=== PATIENT | female | born 2000 | race Caucasian/White ===

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

== ENCOUNTER 2022-06-05 15:35 | Emergency (ER) | payer SELFPAY ==
--- OUTSIDE RECORDS SUMMARY | 2022-06-05 15:38 | XMS REPORT | Continuity of Care Document ---
:2000 Author Organization [facility] t Address [address] [place] [address] Care Team Providers Name Role Phone Unavailable Unavailable Unavailable Problems This patient has no known problems. Allergies, Adverse Reactions, Alerts This patient has no known allergies or adverse reactions. Medications This patient has no known medications. Procedures This patient has no known procedures. Encounters Start End Encounter Admission Attending Care Care Encounter Source Date/Time Date/Time Type Type Clinicians Facility Department ID 2022-04-06 2022-04-06 Outpatient [facility] [id number] Eusebio 11:28:10 11:28:10 1219 [facility] Results Test Description Test Time Test Comments Results Result Comments Source CT/NG, NAAT, URINE 2021-10-17 15:49:29 Test Item Value Reference Range Interpretation Comme nts GONORRHEA, NAAT NEGATIVE NEGATIVE IMPORTA NT NOTICE: SEE ANNOUNCEMENT AT (test code = [email or web address].Tweet Category/VinsulaKit Note: 08566) Assay methodolo gy is nucleic acid amplification by transcriptio n mediated amplification (TMA) utilizing the A ptima Combo 2 Assay. CHLAMYDIA, NAAT NEGATIVE NEGATIVE IMPORTA NT NOTICE: SEE ANNOUNCEMENT AT (test code = [email or web address].Tweet Category/RocheaihuishoubasUrineKit Note: 59772) Assay methodolo gy is nucleic acid amplification by transcriptio n mediated amplification (TMA) utilizing the A ptima Combo 2 Assay. UNLESS OTHERWISE INDIC ATED, ALL TESTING PERFORMED [facility] [employer] [address] [place] [id number] CAMERA REPAIR TECHNICIAN: LENORE MCCLOUD M.D. CLIA NUMBER [id number] [facility] [place] [place] [id number] CT/NG, NAAT, [id number] 20:29:14 Test Item Value Reference Range Interpretation Comments GONORRHEA, NAAT NEGATIVE NEGATIVE IMPORTA NT NOTICE: SEE (test code = [place] [address]) [email or web address].[email or web address] [email or web address] Note: Assay methodology is nucleic acid amplification b y director of communications m ediated amplification ( TMA) utilizing the A ptima Combo 2 Assay. CHLAMYDIA, NAAT POSITIVE NEGATIVE A IMPORTA NT NOTICE: SEE (test code = [place] [address]) [email or web address].[email or web address] Category/Milton [email or web address] Note: Assay methodology is nucleic acid amplification b y director of communications m ediated amplification ( TMA) utilizing the A ptima Combo 2 Assay. TRICHOMONAS, NAAT, [id number] 13:51:57 Test Item Value Reference Range Interpretation Comments TRICHOMONAS, NAAT NEGATIVE NEGATIVE IMPOR TANT NOTICE: SEE (test code = [place] [address]) [email or web address] [email or web address] [email or web address] eCobasUrineKit Note: Assay methodology is nucleic acid amplification b y director of communications m ediated amplification ( TMA) and Hybridization P rotection Assay (HPA) uti lizing the Ideal Power platform. A negative result does not exclude low lev el infection, specimensamplin g error, or collection erro r. UNLESS OTHERWISE INDIC ATED, ALL TESTING PERFORM ED ATCLINICAL PATHOLOGY [facility]. [address] [place] [id number] LABORATOR Y DIRECTOR: Alice MANZANOIA NUMBER [id number] [place]EDIT[place] O. [id number] 03:54:02 Test Item Value Reference Range Interpretation Comments RPR RESULT (test code = NON-REACTIVE NON-REACTIVE 3501) RPR TITER (test code = 3500) NOT INDIC. TITER NOT INDIC. HIV 1/2 4TH GEN, RFLX [id number] 03:33:12 Test Item Value Reference Range Interpretation Comments HIV 1/2 4TH GEN, RFLX CONF (test NON-REACTIVE NON-REACTIVE code = 3514) HEPATITIS PANEL, [id number] 03:33:12 Test Item Value Reference Range Interpretation Comments HEPATITIS A IgM (test NON-REACTIVE NON-REACTIVE code = 02129) HEPATITIS B CORE IgM NON-REACTIVE NON-REACTIVE (test code = 4644) HEPATITIS B SURF AG NON-REACTIVE NON-REACTIVE (test code = 2739) HEPATITIS C ANTIBODY NON-REACTIVE NON-REACTIVE (test code = 4675) INTERPRETATION (NOTE) Hepatitis A HEPATITIS A: (test code sero logy shows no = 2552) evidence of acu te hepatitis A. INTERPRETATION (NOTE) Hepatitis B HEPATITIS B: (test code sero logy shows no = 95193) evidence of acu te hepatitis B and no indication of exposure to hepatitis B vir us in the previous kobe eight months. INTERPRETATION (NOTE) Hepatitis C HEPATITIS C: (test code sero logy shows no = 80757) evidence of exposure to hepatitisC viru s at this time. I t can take up to 12 months after exposure tothe hepatitis C vir us for antibodies to become detectab le in the blood in certain patient s.
[2022-06-05] MEDS ORDERED: METHYLPREDNISOLONE 125 MG INJ ONE (15:55)
[2022-06-05] MEDS ORDERED: FAMOTIDINE 20 MG/2 ML VIAL IV ONE (15:55)
[2022-06-05] MEDS ORDERED: DIPHENHYDRAMINE 50 MG/ML VIAL ONE (15:55)
[2022-06-05] MEDS ORDERED: NA CHLORIDE 0.9% 1,000 ML ONE (15:55)
--- NOTE | 2022-06-05 16:58 | EDPHYS ---
Physician Documentation [facility] Name: Stephanie Peck Age: 21 yrs Sex: Female : 2000 Arrival Date: 06/05/2022 Time: 15:38 Bed 14 Private MD: ED Physician Jose Rosenthal HPI: 06/05 19:10 This 21 yrs old Female presents to ER via Ambulatory with complaints of Allergic kb Reaction. 19:10 The patient presents with itching, rash. Onset: The symptoms/episode began/occurred 1.5 kb hour(s) ago. Associated signs and symptoms: Pertinent positives: hives, rash. Possible causes: The patient has no known obvious cause for the symptoms. At home the patient or guardian has treated the symptoms with nothing. Severity of symptoms: At their worst the symptoms were moderate in the emergency department the symptoms are unchanged. The patient has not experienced similar symptoms in the past. The patient has not recently seen a physician. SENSOR TECHNICIAN: 15:45 LMP N/A - control method iw Historical: - Allergies: 15:44 No Known Allergies; iw - Home Meds: 15:45 Yag-Ji-Cgsatn 0.18/0.215/0.25 mg-25 mcg oral tab 1 tab once daily [Active]; iw - PMHx: 15:44 adhd; Anxiety; depressive disorder; Personality Disorder; iw - Immunization history:: Adult Immunizations unknown. - Social history:: Smoking status: Patient denies any tobacco usage or history of. ROS: 19:09 Constitutional: Negative for fever, chills, and weight loss. kb 19:09 Skin: Positive for erythema, rash. 19:09 All other systems are negative. Exam: 19:09 Constitutional: This is a well developed, well nourished patient who is awake, alert, kb and in no acute distress. Head/Face: Normocephalic, atraumatic. ENT: Moist Mucous membranes Cardiovascular: Regular rate and rhythm with a normal S1 and S2. No gallops, murmurs, or rubs. No pulse deficits. Respiratory: Respirations even and unlabored. No increased work of breathing. Talking in full sentences Abdomen/GI: Soft, non-tender. No distention MS/ Extremity: Pulses equal, no cyanosis. Neurovascular intact. Full, normal range of motion. Neuro: Awake and alert, GCS 15, oriented to person, place, time, and situation. Moves all extremities. Normal gait. 19:09 Skin: rash a moderate rash is noted, consistent with urticaria, on the face, back and chest. Vital Signs: 15:45 BP 137 / 89; Pulse 97; Resp 18; Temp 97.8; Pulse Ox 98% on R/A; Weight 90.72 kg; Height iw 5 ft. 6 in. (167.64 cm); 15:45 Body Mass Index 32.28 (90.72 kg, 167.64 cm) iw MDM: 15:42 Patient medically screened. kb 19:10 Differential diagnosis: anaphylaxis, urticaria. Data reviewed: vital signs, nurses kb notes. Counseling: I had a detailed discussion with the patient and/or guardian regarding: the historical points, exam findings, and any diagnostic results supporting the discharge/admit diagnosis, the need for outpatient follow up, a family practitioner, to return to the emergency department if symptoms worsen or persist or if there are any questions or concerns that arise at home. Response to treatment: the patient's symptoms have resolved after treatment. ED course: Patient is a 21-year-old female who developed a rash, redness to skin and itching approximately 1.5 hours prior to arrival. Patient does not know what is causing the rash. On exam erythema and urticaria noted to face, ears, neck and upper torso. After treatments patient reports resolution of symptoms. Reexamination reveals resolution of erythema and urticaria. Will discharge home to follow-up with colorist dyer as needed. Patient given return precautions, verbal understanding received. Patient in agreement with plan of care.. 06/05 15:47 Order name: IV Start; Complete Time: 16:16 kb Administered Medications: 16:15 Drug: Benadryl (diphenhydrAMINE) 25 mg Route: IVP; Site: right antecubital; ph 17:15 Follow up: Response: No adverse reaction; Marked relief of symptoms ph 16:15 Drug: NS 0.9% 1000 ml Route: IV; Rate: 1000 ml; Site: right antecubital; ph 17:15 Follow up: Response: No adverse reaction; IV Status: Completed infusion; IV Intake: ph 1000ml 16:16 Drug: SOLU-Medrol (methylPrednisoLONE) 125 mg Route: IVP; Site: right antecubital; ph 17:15 Follow up: Response: No adverse reaction ph 16:16 Drug: Pepcid (famotidine) 20 mg Route: IVP; Site: right antecubital; ph 17:15 Follow up: Response: No adverse reaction; Marked relief of symptoms ph Disposition: 06/06 14:32 Co-signature as Attending Physician, Jose Rosenthal MD I reviewed the patient's care rt provided by the Advanced Practice Provider and agree with the diagnosis and treatment plan. Disposition Summary: 06/05/22 16:58 Discharge Ordered Location: Home kb Condition: Stable kb Diagnosis - Urticaria, unspecified kb Followup: kb - With: Private Physician - When: 2 - 3 days - Reason: Recheck today's complaints, Continuance of care, Re-evaluation by your physician Followup: kb - With: Emergency Department - When: As needed - Reason: Worsening of condition Discharge Instructions: - Discharge Summary Sheet kb - Hives, [id number]-qk-Xzsn kb Forms: - Medication Reconciliation Form kb - Thank You Letter kb - Antibiotic Education kb - Prescription Opioid Use kb - Work release form ph Prescriptions: - Pepcid 20 mg Oral Tablet - take 1 tablet by ORAL route every 12 hours for 5 days; 10 tablet; Refills: 0, kb Product Selection Permitted - Prednisone 20 mg Oral Tablet - take 2 tablets by ORAL route once daily for 5 days; 10 tablet; Refills: 0, kb Product Selection Permitted Signatures: Crystal Lopez FNP-C FNP-Ckb Williams, Irene, RN RN Christina Proctor RN RN ph [place], Ryan, MD MD rt
--- NOTE | 2022-06-05 16:58 | ER ---
Nurse's Notes [facility] Name: Stephanie Peck Age: 21 yrs Sex: Female : 2000 Arrival Date: 06/05/2022 Time: 15:38 Bed 14 Private MD: Diagnosis: Urticaria, unspecified Presentation: 06/05 15:43 Chief complaint: Patient states: redness . swelling, hives , started at about 3:00. iw Coronavirus screen: At this time, the client does not indicate any symptoms associated with coronavirus-19. Ebola Screen: Patient negative for fever greater than or equal to 101.5 degrees Fahrenheit, and additional compatible Ebola Virus Disease symptoms Patient denies exposure to infectious person. Patient denies travel to an Ebola-affected area in the 21 days before illness onset. No symptoms or risks identified at this time. Onset: The symptoms/episode began/occurred 1 hour(s) ago. Anaphylaxis evaluation, no signs or symptoms of anaphylaxis were noted. Initial Sepsis Screen: Does the patient meet any 2 criteria? No. Patient's initial sepsis screen is negative. Does the patient have a suspected source of infection? No. Patient's initial sepsis screen is negative. Risk Assessment: Do you want to hurt yourself or someone else? Patient reports no desire to harm self or others. Onset of symptoms was June 05, 2022. 15:43 Method Of Arrival: Ambulatory 15:43 Acuity: DONALDO 3 iw RN DOCUMENT IMPROVEMENT SPECIALIST: 15:45 LMP N/A - control method iw Historical: - Allergies: 15:44 No Known Allergies; iw - Home Meds: 15:45 Bcu-Yl-Tzdwsu 0.18/0.215/0.25 mg-25 mcg oral tab 1 tab once daily [Active]; iw - PMHx: 15:44 adhd; Anxiety; depressive disorder; Personality Disorder; iw - Immunization history:: Adult Immunizations unknown. - Social history:: Smoking status: Patient denies any tobacco usage or history of. Screenin:13 [facility] ED Fall Risk Assessment (Adult) History of falling in the last 3 months, ph including since admission No falls in past 3 months (0 pts) Confusion or Disorientation No (0 pts) Intoxicated or Sedated No (0 pts) Impaired Gait No (0 pts) Mobility Assist Device Used No (0 pt) Altered Elimination No (0 pt) Score/Fall Risk Level 0 - 2 = Low Risk Oriented to surroundings, Maintained a safe environment, Hourly rounding (assess needs \T\ fall precautionary measures) done. Abuse screen: Denies threats or abuse. Denies injuries from another. Nutritional screening: No deficits noted. Tuberculosis screening: No symptoms or risk factors identified. Assessment: 16:14 General: Appears in no apparent distress. well groomed, Behavior is calm, cooperative, ph appropriate for age. Pain: Denies pain. Neuro: Level of Consciousness is awake, alert, obeys commands, Oriented to person, place, time, situation. Cardiovascular: Capillary refill < 3 seconds in bilateral fingers Patient's skin is warm and dry. Respiratory: Airway is patent Respiratory effort is even, unlabored, Respiratory pattern is regular, symmetrical, Breath sounds are clear bilaterally. Denies shortness of breath. GI: No signs and/or symptoms were reported involving the gastrointestinal system. Derm: Skin is healthy with good turgor, Skin is pink, warm \T\ dry. Rash noted that is itchy, red, raised, urticaria, on back, chest, right arm and left arm. 18:15 Reassessment: Patient appears in no apparent distress at this time. Patient and/or ph family updated on plan of care and expected duration. Pain level reassessed. Patient is alert, oriented x 3, equal unlabored respirations, skin warm/dry/pink. Patient states feeling better. Patient states symptoms have improved. Vital Signs: 15:45 BP 137 / 89; Pulse 97; Resp 18; Temp 97.8; Pulse Ox 98% on R/A; Weight 90.72 kg; Height iw 5 ft. 6 in. (167.64 cm); 15:45 Body Mass Index 32.28 (90.72 kg, 167.64 cm) iw ED Course: 15:38 Patient arrived in ED. mr 15:39 Crystal Lopez FNP-C is [facility]. kb 15:39 Jose Rosenthal MD is Attending Physician. kb 15:44 Triage completed. iw 15:45 Arm band placed on. iw 15:49 Christina Proctor RN is Primary Nurse. ph 16:15 Patient has correct armband on for positive identification. Bed in low position. Call ph light in reach. Side rails up X 1. Pulse ox on. NIBP on. Door closed. Noise minimized. Warm blanket given. 16:15 Inserted saline lock: 22 gauge in right antecubital area, using aseptic technique. ph 16:15 No provider procedures requiring assistance completed. ph 17:15 IV discontinued, intact, bleeding controlled, No redness/swelling at site. Pressure ph dressing applied. Administered Medications: 16:15 Drug: Benadryl (diphenhydrAMINE) 25 mg Route: IVP; Site: right antecubital; ph 17:15 Follow up: Response: No adverse reaction; Marked relief of symptoms ph 16:15 Drug: NS 0.9% 1000 ml Route: IV; Rate: 1000 ml; Site: right antecubital; ph 17:15 Follow up: Response: No adverse reaction; IV Status: Completed infusion; IV Intake: ph 1000ml 16:16 Drug: SOLU-Medrol (methylPrednisoLONE) 125 mg Route: IVP; Site: right antecubital; ph 17:15 Follow up: Response: No adverse reaction ph 16:16 Drug: Pepcid (famotidine) 20 mg Route: IVP; Site: right antecubital; ph 17:15 Follow up: Response: No adverse reaction; Marked relief of symptoms ph Medication: 16:15 VIS not applicable for this client. ph Intake: 17:15 IV: 1000ml; Total: 1000ml. ph Outcome: 16:58 Discharge ordered by . kb 17:18 Patient left the ED. ph 17:18 Discharged to home ambulatory, with family. ph 17:18 Condition: good 17:18 Discharge instructions given to patient, family, Instructed on discharge instructions, follow up and referral plans. medication usage, Demonstrated understanding of instructions, follow-up care, medications, Prescriptions given X 2. Signatures: Crystal Lopez, REJIC BRANDON-Fatoumata Vee Irene, RN RN iw Christina Proctor RN RN ph
[2022-06-05 19:07] VITALS: BP 137/89; TEMP 97.8; O2SAT 98
== END 2022-06-05 17:18 | disposition home or self-care (01) ==
LOC: ER 15:35
DX: L50.9 Urticaria, unspecified (principal)
CPT/HCPCS: 96361; 96374; 96375; 99284; J1200; J2930; J7030

== ENCOUNTER 2024-02-21 12:50 | Emergency (ER) | payer SELFPAY ==
--- OUTSIDE RECORDS SUMMARY | 2024-02-21 12:53 | XMS REPORT | Continuity of Care Document ---
Author Name Unknown Address [address] [facility] [address] [place] [address] [facility] Address [address] [facility] [address] [place] [address] Care Team Providers Care Component Inspector Name Role Phone Unavailable Unavailable Unavailable Encounters Start Date/Time End Date/Time Encounter Type Admission Type Attending Clinicians Care Facility Care Department Encounter ID Source 2022-09-11 13:48:19 2022-09-11 13:48:19 Outpatient [facility] [id number] 2022-06-18 14:34:31 2022-06-18 14:34:31 Outpatient [facility] [id number] 2022-04-06 11:28:10 2022-04-06 11:28:10 Outpatient [facility] [id number] Results Test Description Test Time Test Comments Results Result Co mments Source CT/NG, NAAT, [id number] 20:29:14* Test Item Value Reference Range Interpretation Comme nts GONORRHEA, NAAT (test code = 20992) NEGATIVE NEGATIVE IMPORTANT NO RICHARD: SEE ANNOUNCEMENT AT [email or web address] Note: Assay methodology is nucleic acid amplification by telegraph dispatcher mediated amplification (TMA) utilizing the Aptima Combo 2 Assay. CHLAMYDIA, NAAT (test code = 03825) POSITIVE NEGATIVE A IMPORTANT NO RICHARD: SEE ANNOUNCEMENT AT [email or web address] Note: Assay methodology is nucleic acid amplification by telegraph dispatcher mediated amplification (TMA) utilizing the Aptima Combo 2 Assay. TRICHOMONAS, NAAT, [id number] 13:51:57* Test Item Value Reference Range Interpretation Comme nts TRICHOMONAS, NAAT (test code = 82402) NEGATIVE NEGATIVE IMPORTANT NO RICHARD: SEE ANNOUNCEMENT AT [email or web address] Note: Assay methodology is nucleic acid amplification by telegraph dispatcher mediated amplification (TMA) and Hybridization Protection Assay (HPA) utilizing the ArchiveSocial platform. A negative result does not exclude low level infection, specimensampling error, or collection error. UNLESS OTHERWISE INDICATED, ALL TESTING PERFORMED [facility] [employer], [facility]. [address] [place] [address] PAPER FINISHER: LENORE INFANTE M.D. [facility] NUMBER [id number] [place]. [id number] 03:54:02* Test Item Value Reference Range Interpretation Comme nts RPR RESULT (test code = 3501) NON-REACTIVE NON-REACTIVE RPR TITER (test code = 3500) NOT INDIC. TITER NOT INDIC. HIV 1/2 4TH GEN, RFLX [id number] 03:33:12* Test Item Value Reference Range Interpretation Comme nts HIV 1/2 4TH GEN, RFLX CONF ( test code = 3514) NON-REACTIVE NON-REACTIVE HEPATITIS PANEL, [id number] 03:33:12* Test Item Value Reference Range Interpretation Comme nts HEPATITIS A IgM (test code = 03448) NON-REACTIVE NON-REACTIVE HEPATITIS B CORE IgM (test code = 4644) NON-REACTIVE NON-REACTIVE HEPATITIS B SURF AG (test code = 2739) NON-REACTIVE NON-REACTIVE HEPATITIS C ANTIBODY (test code = 4675) NON-REACTIVE NON-REACTIVE INTERPRETATION HEPATITIS A: (test code = 2552) (NOTE) Hepatitis A serology shows no evidence of acute hepatitis A. INTERPRETATION HEPATITIS B: (test code = 27038) (NOTE) Hepatitis B serology shows no evidence of acute hepatitis B andno indication of exposure to hepatitis B virus in the previous kobe eight months. INTERPRETATION HEPATITIS C: (test code = 24703) (NOTE) Hepatitis C serology shows no evidence of exposure to hepatitisC virus at this time. It can take up to 12 months after exposure tothe hepatitis C virus for antibodies to become detectable in the blood in certain patients.
--- NOTE | 2024-02-21 13:17 | ER ---
Nurse's Notes [facility] Name: Stephanie Peck Age: 23 yrs Sex: Female : 2000 Arrival Date: 02/21/2024 Time: 12:50 Bed DX3 Private MD: Diagnosis: Acute tonsillitis, unspecified Presentation: 02/20 13:03 Chief complaint: Patient states: sore throat with white patches today , mild headache , iw no fever. Coronavirus screen: Client presents with at least one sign or symptom that may indicate coronavirus-19. Ebola Screen: No symptoms or risks identified at this time. Initial Sepsis Screen: Does the patient meet any 2 criteria? No. Patient's initial sepsis screen is negative. Does the patient have a suspected source of infection? No. Patient's initial sepsis screen is negative. Risk Assessment: Do you want to hurt yourself or someone else? Patient reports no desire to harm self or others. Onset of symptoms was February 21, 2024. 13:03 Method Of Arrival: Ambulatory iw 13:03 Acuity: DONALDO 4 iw Historical: - PMHx: 13:04 adhd; Anxiety; depressive disorder; Personality Disorder; iw - Family history:: not pertinent. - Hospitalizations: : No recent hospitalization is reported. Vital Signs: 13:03 BP 134 / 71; Pulse 79; Resp 16; Temp 98.2; iw ED Course: 12:52 Patient arrived in ED. ra3 12:56 Juvenal Whitlock MD is Attending Physician. rn 13:04 Triage completed. iw 13:31 Holli Cannon RN is Primary Nurse. iw Administered Medications: No medications were administered Outcome: 13:17 Discharge ordered by . rn 13:31 Patient left the ED. iw Signatures: Holli Cannon RN RN iw Juvenal Whitlock MD MD rn Alva, Ruby ra3
--- NOTE | 2024-02-21 13:17 | EDPHYS ---
Physician Documentation [facility] Name: Stephanie Peck Age: 23 yrs Sex: Female : 2000 Arrival Date: 02/21/2024 Time: 12:50 Bed DX3 Private MD: ED Physician Juvenal Whitlock HPI: 02/20 13:01 This 23 yrs old Female presents to ER via Unassigned with complaints of Sore Throat, rn Stiff Neck. 13:13 The patient presents with sore throat. The patient describes throat pain as raw, rn scratchy. Onset: The symptoms/episode began/occurred 1 day(s) ago. Severity of symptoms: At their worst the symptoms were mild, in the emergency department the symptoms are unchanged. Modifying factors: The symptoms are alleviated by nothing, the symptoms are aggravated by swallowing. The patient has not experienced similar symptoms in the past. Patient reports 2 days of sore throat. No fever or chill. Did have sick contact also with sore throat. No runny nose or cough. No vomiting or diarrhea.. Historical: - PMHx: 13:04 adhd; Anxiety; depressive disorder; Personality Disorder; iw - Family history:: not pertinent. - Hospitalizations: : No recent hospitalization is reported. ROS: 13:13 Constitutional: Negative for fever, chills, and weight loss, ENT: Positive for sore rn throat Cardiovascular: Negative for chest pain, palpitations, and edema, Respiratory: Negative for shortness of breath, cough, wheezing, and pleuritic chest pain, Abdomen/GI: Negative for abdominal pain, nausea, vomiting, diarrhea, and constipation, Neuro: Negative for headache, weakness, numbness, tingling, and seizure, Exam: 13:13 Constitutional: This is a well developed, well nourished patient who is awake, alert, rn and in no acute distress. Head/Face: Normocephalic, atraumatic. ENT: Pharyngeal erythema with exudate on the left tonsil. No evidence of peritonsillar abscess. Uvula midline. No stridor. Nontender bilateral cervical lymphadenopathy present. Neck: Supple neck, no meningismus Cardiovascular: Regular rate and rhythm. No pulse deficits. Respiratory: No increased work of breathing, no retractions or nasal flaring. Vital Signs: 13:03 BP 134 / 71; Pulse 79; Resp 16; Temp 98.2; iw MDM: 12:56 Medical Screening Exam initiated rn 13:13 Differential diagnosis: group A strep tonsillitis, laryngitis, pharyngitis, rn tonsillitis, viral syndrome. Data reviewed: vital signs, nurses notes, and as a result, I will discharge patient. Counseling: I had a detailed discussion with the patient and/or guardian regarding the historical points, exam findings, and any diagnostic results supporting the discharge/admit diagnosis, the need for outpatient follow up, to return to the emergency department if symptoms worsen or persist or if there are any questions or concerns that arise at home. Special discussion: I discussed with the patient/guardian in detail that at this point there is no indication for admission to the hospital. It is understood, however, that if the symptoms persist or worsen the patient needs to return immediately for re-evaluation. Administered Medications: No medications were administered Disposition Summary: 02/21/24 13:17 Discharge Ordered Notes: Location: Home rn Problem: new rn Symptoms: have improved rn Condition: Stable rn Diagnosis - Acute tonsillitis, unspecified rn Followup: rn - With: Private Physician - When: As needed - Reason: Recheck today's complaints, Re-evaluation by your physician Discharge Instructions: - Discharge Summary Sheet rn - Tonsillitis rn Forms: - Work release form bd - Medication Reconciliation Form rn - Antibiotic internal grinder - Prescription Opioid Use rn - Patient Portal Instructions rn - Leadership Thank You Letter rn - School release form ss Prescriptions: - Augmentin 875-125 mg Oral Tablet - take 1 tablet ORAL route every 12 hours for 10 days; 20 tablet; Refills: 0, rn Product Selection Permitted Signatures: Holli Cannon RN RN Juvenal Dubon MD MD furnace charging machine operator: (The following items were deleted from the chart) 13:15 13:13 Constitutional: Negative for fever, chills, and weight loss, ENT: Positive for rn sore throat Cardiovascular: Negative for chest pain, palpitations, and edema, Respiratory: Negative for shortness of breath, cough, wheezing, and pleuritic chest pain, Abdomen/GI: Negative for abdominal pain, nausea, vomiting, diarrhea, and constipation, rn
[2024-02-21 13:55] VITALS: BP 134/71; TEMP 98.2
== END 2024-02-21 13:31 | disposition home or self-care (01) ==
LOC: ER 12:50
DX: J03.90 Acute tonsillitis, unspecified (principal)
CPT/HCPCS: 99281

== ENCOUNTER 2024-11-22 15:40 | Emergency (ER) | payer BC, SELFPAY ==
--- OUTSIDE RECORDS SUMMARY | 2024-11-22 15:44 | XMS REPORT | Continuity of Care Document ---
Author Name Unknown Address [address] [place] [address] [facility] Address [address] [place] [address] Care Team Providers Care C 13 Catapult Operator Name Role Phone Unavailable Unavailable Unavailable Encounters Start Date/Time End Date/Time Encounter Type Admission Type Attending Clinicians Care Facility Care Department Encounter ID Source 2022-09-11 13:48:19 2022-09-11 13:48:19 Outpatient [facility] [id number] 2022-06-18 14:34:31 2022-06-18 14:34:31 Outpatient [facility] [id number] 2022-04-06 11:28:10 2022-04-06 11:28:10 Outpatient [facility] [id number] Results Test Description Test Time Test Comments Results Result Co mments Source CT/NG, NAAT, [id number] 20:29:14* Test Item Value Reference Range Interpretation Comme nts GONORRHEA, NAAT (test code = 44554) NEGATIVE NEGATIVE IMPORTANT NO RICHARD: SEE ANNOUNCEMENT AT [email or web address] Note: Assay methodology is nucleic acid amplification by purchasing administrative assistant mediated amplification (TMA) utilizing the Aptima Combo 2 Assay. CHLAMYDIA, NAAT (test code = 75807) POSITIVE NEGATIVE A IMPORTANT NO RICHARD: SEE ANNOUNCEMENT AT [email or web address] Note: Assay methodology is nucleic acid amplification by purchasing administrative assistant mediated amplification (TMA) utilizing the Aptima Combo 2 Assay. TRICHOMONAS, NAAT, [id number] 13:51:57* Test Item Value Reference Range Interpretation Comme nts TRICHOMONAS, NAAT (test code = 24390) NEGATIVE NEGATIVE IMPORTANT NO RICHARD: SEE ANNOUNCEMENT AT [email or web address] Note: Assay methodology is nucleic acid amplification by purchasing administrative assistant mediated amplification (TMA) and Hybridization Protection Assay (HPA) utilizing the Q Interactive platform. A negative result does not exclude low level infection, specimensampling error, or collection error. UNLESS OTHERWISE INDICATED, ALL TESTING PERFORMED [facility] [employer] [address] [place] [address] TECHNICAL SALES REPRESENTATIVE: LENORE INFANTE M.D. [facility] NUMBER [id number] [place]. [id number] 03:54:02* Test Item Value Reference Range Interpretation Comme nts RPR RESULT (test code = 3501) NON-REACTIVE NON-REACTIVE RPR TITER (test code = 3500) NOT INDIC. TITER NOT INDIC. HIV 1/2 4TH GEN, RFLX [id number] 03:33:12* Test Item Value Reference Range Interpretation Comme nts HIV 1/2 4TH GEN, RFLX CONF ( test code = 3514) NON-REACTIVE NON-REACTIVE HEPATITIS PANEL, [id number] 03:33:12* Test Item Value Reference Range Interpretation Comme nts HEPATITIS A IgM (test code = 31837) NON-REACTIVE NON-REACTIVE HEPATITIS B CORE IgM (test code = 4644) NON-REACTIVE NON-REACTIVE HEPATITIS B SURF AG (test code = 2739) NON-REACTIVE NON-REACTIVE HEPATITIS C ANTIBODY (test code = 4675) NON-REACTIVE NON-REACTIVE INTERPRETATION HEPATITIS A: (test code = 2552) (NOTE) Hepatitis A serology shows no evidence of acute hepatitis A. INTERPRETATION HEPATITIS B: (test code = 97615) (NOTE) Hepatitis B serology shows no evidence of acute hepatitis B andno indication of exposure to hepatitis B virus in the previous kobe eight months. INTERPRETATION HEPATITIS C: (test code = 40760) (NOTE) Hepatitis C serology shows no evidence of exposure to hepatitisC virus at this time. It can take up to 12 months after exposure tothe hepatitis C virus for antibodies to become detectable in the blood in certain patients.
[2024-11-22] MEDS ORDERED: IBUPROFEN 400 MG TAB ONE (16:01)
[2024-11-22 16:40] LABS: Influenza A Ag Negative; Influenza B Ag Negative; SARS-CoV-2 Antigen Rapid Res Negative (Negative)
--- NOTE | 2024-11-22 16:44 | RAD REPORT ---
EXAM: Chest Pa And Lat (2 Views) HISTORY: 24 years Female Cough;Congestion COMPARISON: No prior exams FINDINGS: LUNGS/PLEURA: The lungs are clear. No pleural effusions or pneumothorax. No pulmonary edema. CARDIAC/MEDIASTINUM: The cardiac silhouette is within normal limits. UPPER ABDOMEN: No significant abnormality. BONES: No acute abnormality. LINES/TUBES/OTHER: N/A IMPRESSION: No evidence of acute cardiopulmonary disease.
--- NOTE | 2024-11-22 17:17 | ER ---
Nurse's Notes [facility] Name: Stephanie Peck Age: 24 yrs Sex: Female : 2000 Arrival Date: 11/22/2024 Time: 15:40 Bed 13 Private MD: Diagnosis: Acute tonsillitis, unspecified Presentation: 11/22 15:50 Chief complaint: Patient states: started having a sore throat last night and woke up me1 this am with swollen/painful bottom lip, URRUTIA and chills. Coronavirus screen: Vaccine status: Patient reports receiving the 2nd dose of the covid vaccine. Ebola Screen: No symptoms or risks identified at this time. Initial Sepsis Screen: Does the patient meet any 2 criteria? HR > 90 bpm. Does the patient have a suspected source of infection? No. Patient's initial sepsis screen is negative. Risk Assessment: Do you want to hurt yourself or someone else? Patient reports no desire to harm self or others. Onset of symptoms was November 21, 2024 at 20:00. 15:50 Method Of [place] [facility] [place] Acuity: DONALDO 4 me1 Historical: - Allergies: 15:52 No Known Allergies; me1 - PMHx: 15:52 adhd; depressive disorder; Anxiety; Personality Disorder; me1 - PSHx: 15:52 None; me1 - Immunization history:: Adult Immunizations up to date. - Infectious Disease History:: Denies. - Social history:: Smoking status: Patient denies any tobacco usage or history of. Screenin:15 [facility] ED Fall Risk Assessment (Adult) History of falling in the last 3 months, kc6 including since admission No falls in past 3 months (0 pts) Confusion or Disorientation No (0 pts) Intoxicated or Sedated No (0 pts) Impaired Gait No (0 pts) Mobility Assist Device Used No (0 pt) Altered Elimination No (0 pt) Score/Fall Risk Level 0 - 2 = Low Risk Oriented to surroundings. Abuse screen: Denies threats or abuse. Denies injuries from another. Nutritional screening: No deficits noted. Tuberculosis screening: No symptoms or risk factors identified. Assessment: 16:29 General: Appears in no apparent distress. comfortable, well groomed, well developed, kc6 Behavior is calm, cooperative, appropriate for age, Reports chills for 12-24 hours. Pain: Complains of pain in lower lip. Neuro: Level of Consciousness is awake, alert, obeys commands, Oriented to person, place, time, situation, Appropriate for age Reports headache. Cardiovascular: Capillary refill < 3 seconds. Respiratory: Airway is patent Trachea midline Respiratory effort is even, unlabored, Respiratory pattern is regular, symmetrical. GI: No signs and/or symptoms were reported involving the gastrointestinal system. : No signs and/or symptoms were reported regarding the genitourinary system. EENT: Reports pain when swallowing. Derm: Skin is intact, is healthy with good turgor, Skin is pink, warm \T\ dry. Musculoskeletal: Circulation, motion, and sensation intact. Range of motion: intact in all extremities, Swelling present in lower lip. 17:16 Reassessment: Patient appears in no apparent distress at this time. No changes from [facility] previously documented assessment. Patient and/or family updated on plan of care and expected duration. Pain level reassessed. Patient is alert, oriented x 3, equal unlabored respirations, skin warm/dry/pink. Vital Signs: 15:50 BP 132 / 70; Pulse 92; Resp 16; Temp 98.2; Pulse Ox 100% ; Weight 65.77 kg; Height 5 me1 ft. 5 in. ; Pain 5/10; 15:50 Body Mass Index 24.13 (65.77 kg, 165.1 cm) me1 15:50 Pain Scale: Adult me1 ED Course: 15:43 Patient arrived in ED. im 15:44 Gordo Avitia [facility]-C [facility] 15:44 Shawnee Mojica MD is Attending Physician. dr5 15:47 Molly Chin, SEVERIANO is Primary Nurse. kc6 15:52 Triage completed. me1 15:52 Arm band placed on Patient placed in an exam room. me1 16:09 Chest Pa And Lat (2 Views) XRAY In Process Unspecified. EDMS 16:15 Patient has correct armband on for positive identification. Bed in low position. Call [facility] light in reach. Side rails up X 1. Adult w/ patient. Pulse ox on. NIBP on. Door closed. Noise minimized. Lights dimmed. Pillow given. Verbal reassurance given. 16:15 COVID swab sent to lab. Flu and/or RSV swab sent to lab. Strep swab sent to lab. kc6 Patient did not have IV access during this emergency room visit. Patient maintains SpO2 saturation greater than 95% on room air. 17:24 No provider procedures requiring assistance completed. kc6 Administered Medications: 16:15 Drug: Dexamethasone IM 10 mg IM once Route: IM; Site: left deltoid; kc6 17:16 Follow up: Response: No adverse reaction kc6 16:16 Drug: Ibuprofen PO 800 mg PO once Route: PO; kc6 17:16 Follow up: Response: No adverse reaction kc6 Medication: 17:24 VIS not applicable for this client. kc6 Outcome: 17:17 Discharge ordered by . dr5 17:24 Discharged to home ambulatory, with family, kc6 17:24 Condition: good 17:24 Discharge instructions given to patient, Instructed on discharge instructions, follow up and referral plans. medication usage, Demonstrated understanding of instructions, follow-up care, medications, Prescriptions given X 2, 17:25 Patient left the ED. 6 Signatures: Dispatcher [employer] Molly Rao RN RN kc6 Shira Nelson Michelle, RN RN me1 Gordo Avitia, MOBILE HEAVY EQUIPMENT OPERATOR-C MOBILE HEAVY EQUIPMENT OPERATOR-Cdr5
--- NOTE | 2024-11-22 17:17 | EDPHYS ---
Physician Documentation [facility] Name: Stephanie Peck Age: 24 yrs Sex: Female : 2000 Arrival Date: 11/22/2024 Time: 15:40 Bed 13 Private MD: ED Physician Shawnee Mojica HPI: 11/22 17:09 This 24 yrs old Female presents to ER via Ambulatory with complaints of lip dr5 pain, Neck Pain, <24hrs Old, Sore Throat. 17:09 Onset: The symptoms/episode began/occurred acutely. Patient is a 24-year-old female dr5 with history of ADHD, depression, anxiety coming in with headache, sore throat, swollen bottom lip that occurred yesterday. Patient reports that she has had her lip piercing in her bottom lip for years. Patient denies sick contacts. Patient denies chest pain, abdominal pain, neck pain, nausea, vomiting, diarrhea.. Historical: - Allergies: 15:52 No Known Allergies; me1 - PMHx: 15:52 adhd; depressive disorder; Anxiety; Personality Disorder; me1 - PSHx: 15:52 None; me1 - Immunization history:: Adult Immunizations up to date. - Infectious Disease History:: Denies. - Social history:: Smoking status: Patient denies any tobacco usage or history of. ROS: 17:09 Constitutional: as per hpi dr5 Exam: 17:09 Constitutional: This is a well developed, well nourished patient who is awake, alert, dr5 and in no acute distress. Head/Face: Normocephalic, atraumatic. Eyes: Pupils equal round and reactive to light, extra-ocular motions intact. Lids and lashes normal. Conjunctiva and sclera are non-icteric and not injected. Cornea within normal limits. Periorbital areas with no swelling, redness, or edema. ENT: Nares patent. No nasal discharge, no septal abnormalities noted. Tympanic membranes are normal and external auditory canals are clear. Oropharynx with no redness, swelling, or masses, exudates, or evidence of obstruction, uvula midline. Mucous membranes moist. Mild swollen tonsils noted bilaterally. Neck: Trachea midline, no thyromegaly or masses palpated, and no cervical lymphadenopathy. Supple, full range of motion without nuchal rigidity, or vertebral point tenderness. No Meningismus. Chest/axilla: Normal chest wall appearance and motion. Nontender with no deformity. No lesions are appreciated. Cardiovascular: Regular rate and rhythm with a normal S1 and S2. Normal PMI, no JVD. No pulse deficits. Respiratory: Lungs have equal breath sounds bilaterally, clear to auscultation. No rales, rhonchi or wheezes noted. No increased work of breathing, no retractions or nasal flaring. Back: No spinal tenderness. No costovertebral tenderness. Full range of motion. Skin: Warm, dry with normal turgor. Normal color with no rashes, no lesions, and no evidence of cellulitis. Mild swollen lower lip. No tenderness to palpation. MS/ Extremity: Pulses equal, no cyanosis. Neurovascular intact. Full, normal range of motion. Vital Signs: 15:50 BP 132 / 70; Pulse 92; Resp 16; Temp 98.2; Pulse Ox 100% ; Weight 65.77 kg; Height 5 me1 ft. 5 in. ; Pain 5/10; 15:50 Body Mass Index 24.13 (65.77 kg, 165.1 cm) me1 15:50 Pain Scale: Adult me1 MDM: 15:46 Medical Screening Exam initiated dr5 17:09 Differential diagnosis: viral Infection, bacterial infection, bronchitis, pneumonia. dr5 Data reviewed: vital signs, nurses notes, lab test result(s), Flu: negative Strep and COVID - Negative, radiologic studies, plain films. 17:09 Consideration of Admission/Observation Escalation of care including dr5 admission/observation considered. Escalation considered patient was not able to handle secretions or speak in full sentences.. I considered the following discharge prescriptions or medication management in the emergency department I discussed and recommended Over The Counter medications, Medications were administered in the Emergency Department. See MAR. Independent interpretation of the following test(s) in the Emergency Department X-Ray: My interpretation is Independent repetition of x-ray did not reveal any infiltrates concerning for pneumonia. Historians other than the Patient: Parent: Mother at bedside. Care significantly affected by the following chronic conditions: Depression, anxiety, ADHD. Care significantly affected by the following Social Determinants of Health: Poor access to healthcare and/or lack of insurance, Poor access to transportation, Problems related to employment. Counseling: I had a detailed discussion with the patient and/or guardian regarding the historical points, exam findings, and any diagnostic results supporting the discharge/admit diagnosis, the presence of at least one elevated blood pressure reading (>120/80) during this emergency department visit, lab results, radiology results, the need for outpatient follow up, for definitive care, an ENT specialist, a family practitioner, to return to the emergency department if symptoms worsen or persist or if there are any questions or concerns that arise at home. Medication response: ibuprofen administration has improved the patient's pain. Response to treatment: the patient's symptoms have markedly improved after treatment. Special discussion: I have referred the patient to see his PCP for further evaluation of high blood pressure. I discussed with the patient/guardian in detail that at this point there is no indication for admission to the hospital. It is understood, however, that if the symptoms persist or worsen the patient needs to return immediately for re-evaluation. Based on the history and exam findings, there is no indication for further emergent testing or inpatient evaluation. I discussed with the patient/guardian the need to see the ENT specialist for further evaluation of the symptoms. ED course: Will cover patient for tonsillitis with amoxicillin and give steroid Dosepak for enlarged tonsils. Recommended alternating Tylenol and Motrin as needed for pain and fever. Strict ER precautions given. Recommended patient follow with ENT as needed.. 11/22 15:54 Order name: COVID-19 Ag + Flu A+B Ag; Complete Time: 16:41 dr5 11/22 15:54 Order name: Group A Streptococcus Rapid; Complete Time: 16:35 dr5 11/22 16:32 Order name: Throat Culture EDPA 11/22 15:54 Order name: Chest Pa And Lat (2 Views) XRAY; Complete Time: 16:49 dr5 Administered Medications: 16:15 Drug: Dexamethasone IM 10 mg IM once Route: IM; Site: left deltoid; kc6 17:16 Follow up: Response: No adverse reaction kc6 16:16 Drug: Ibuprofen PO 800 mg PO once Route: PO; kc6 17:16 Follow up: Response: No adverse reaction kc6 Disposition Summary: 11/22/24 17:17 Discharge Ordered Notes: Location: Home dr5 Condition: Stable dr5 Diagnosis - Acute tonsillitis, unspecified dr5 Followup: dr5 - With: Emergency Department - When: As needed - Reason: Worsening of condition Followup: dr5 - With: Private Physician - When: 1 - 2 days - Reason: Recheck today's complaints, Continuance of care, Re-evaluation by your physician Discharge Instructions: - Discharge Summary Sheet dr5 - Tonsillitis dr5 Forms: - Work release form dr5 - Medication Reconciliation Form dr5 - Antibiotic Education dr5 - Patient Portal Instructions dr5 - Leadership Thank You Letter dr5 Prescriptions: - Amoxicillin 500 mg Oral capsule - take 1 capsule ORAL route every 12 hours for 10 days; 20 tablet; Refills: 0, dr5 Product Selection Permitted - Medrol (Aamir) 4 mg Oral Tablets, Dose Pack - take 1 tablet ORAL route as directed - follow package instructions; 1 packet; dr5 Refills: 0, Product Selection Permitted Signatures: Dispatcher [employer] EDMolly Vera RN RN kc6 Alicja Ford RN RN me1 Gordo Avitia, BRANDON-C STRETCHING PRESS OPERATOR-5 Corrections: (The following items were deleted from the chart) 17:14 17:09 Constitutional: This is a well developed, well nourished patient who is awake, dr5 alert, and in no acute distress. Head/Face: Normocephalic, atraumatic. Eyes: Pupils equal round and reactive to light, extra-ocular motions intact. Lids and lashes normal. Conjunctiva and sclera are non-icteric and not injected. Cornea within normal limits. Periorbital areas with no swelling, redness, or edema. ENT: Nares patent. No nasal discharge, no septal abnormalities noted. Tympanic membranes are normal and external auditory canals are clear. Oropharynx with no redness, swelling, or masses, exudates, or evidence of obstruction, uvula midline. Mucous membranes moist. Neck: Trachea midline, no thyromegaly or masses palpated, and no cervical lymphadenopathy. Supple, full range of motion without nuchal rigidity, or vertebral point tenderness. No Meningismus. Chest/axilla: Normal chest wall appearance and motion. Nontender with no deformity. No lesions are appreciated. Cardiovascular: Regular rate and rhythm with a normal S1 and S2. Normal PMI, no JVD. No pulse deficits. Respiratory: Lungs have equal breath sounds bilaterally, clear to auscultation. No rales, rhonchi or wheezes noted. No increased work of breathing, no retractions or nasal flaring. Back: No spinal tenderness. No costovertebral tenderness. Full range of motion. Skin: Warm, dry with normal turgor. Normal color with no rashes, no lesions, and no evidence of cellulitis. Mild swollen lower lip. No tenderness to palpation. MS/ Extremity: Pulses equal, no cyanosis. Neurovascular intact. Full, normal range of motion. dr5
[2024-11-22 17:29] VITALS: BP 132/70; TEMP 98.2; O2SAT 100
== END 2024-11-22 17:25 | disposition home or self-care (01) ==
LOC: ER 15:40
DX: J03.90 Acute tonsillitis, unspecified (principal); Z11.52 Encounter for screening for COVID-19
CPT/HCPCS: 87070; 36415; 71046; 96372; 99284; 87428; J1100

== ENCOUNTER 2024-11-24 15:08 | Emergency (ER) | payer BC ==
--- OUTSIDE RECORDS SUMMARY | 2024-11-24 15:12 | XMS REPORT | Continuity of Care Document ---
Author Name Unknown Address [address] [facility] [address] [place] [address] [facility] Address [address] 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 Worker Name Role Phone Unavailable Unavailable Unavailable Encounters Start Date/Time End Date/Time Encounter Type Admission Type Attending Clinicians Care Facility Care Department Encounter ID Source 2022-09-11 13:48:19 2022-09-11 13:48:19 Outpatient [facility] [id number] 2022-06-18 14:34:31 2022-06-18 14:34:31 Outpatient [facility] [id number] 2022-04-06 11:28:10 2022-04-06 11:28:10 Outpatient [facility] [id number] Results Test Description Test Time Test Comments Results Result Co mments Source CT/NG, NAAT, [id number] 20:29:14* Test Item Value Reference Range Interpretation Comme nts GONORRHEA, NAAT (test code = 91684) NEGATIVE NEGATIVE IMPORTANT NO RICHARD: SEE ANNOUNCEMENT AT [email or web address] Note: Assay methodology is nucleic acid amplification by mds rn mediated amplification (TMA) utilizing the Aptima Combo 2 Assay. CHLAMYDIA, NAAT (test code = 21483) POSITIVE NEGATIVE A IMPORTANT NO RICHARD: SEE ANNOUNCEMENT AT [email or web address] Note: Assay methodology is nucleic acid amplification by mds rn mediated amplification (TMA) utilizing the Aptima Combo 2 Assay. TRICHOMONAS, NAAT, [id number] 13:51:57* Test Item Value Reference Range Interpretation Comme nts TRICHOMONAS, NAAT (test code = 40600) NEGATIVE NEGATIVE IMPORTANT NO RICHARD: SEE ANNOUNCEMENT AT [email or web address] Note: Assay methodology is nucleic acid amplification by mds rn mediated amplification (TMA) and Hybridization Protection Assay (HPA) utilizing the [employer] platform. A negative result does not exclude low level infection, specimensampling error, or collection error. UNLESS OTHERWISE INDICATED, ALL TESTING PERFORMED [facility] [employer] [address] [place] [address] JOINT SETTER: LENORE INFANTE M.D. [facility] NUMBER [id number] [facility] [place]. [id number] 03:54:02* Test Item Value Reference Range Interpretation Comme nts RPR RESULT (test code = 3501) NON-REACTIVE NON-REACTIVE RPR TITER (test code = 3500) NOT INDIC. TITER NOT INDIC. HIV 1/2 4TH GEN, RFLX [id number] 03:33:12* Test Item Value Reference Range Interpretation Comme nts HIV 1/2 4TH GEN, RFLX CONF ( test code = 3514) NON-REACTIVE NON-REACTIVE HEPATITIS PANEL, [id number] 03:33:12* Test Item Value Reference Range Interpretation Comme nts HEPATITIS A IgM (test code = 23996) NON-REACTIVE NON-REACTIVE HEPATITIS B CORE IgM (test code = 4644) NON-REACTIVE NON-REACTIVE HEPATITIS B SURF AG (test code = 2739) NON-REACTIVE NON-REACTIVE HEPATITIS C ANTIBODY (test code = 4675) NON-REACTIVE NON-REACTIVE INTERPRETATION HEPATITIS A: (test code = 2552) (NOTE) Hepatitis A serology shows no evidence of acute hepatitis A. INTERPRETATION HEPATITIS B: (test code = 63590) (NOTE) Hepatitis B serology shows no evidence of acute hepatitis B andno indication of exposure to hepatitis B virus in the previous kobe eight months. INTERPRETATION HEPATITIS C: (test code = 14625) (NOTE) Hepatitis C serology shows no evidence of exposure to hepatitisC virus at this time. It can take up to 12 months after exposure tothe hepatitis C virus for antibodies to become detectable in the blood in certain patients.
[2024-11-24] MEDS ORDERED: HYDROCODONE/APAP 5/325 MG TAB ONE (15:53)
--- NOTE | 2024-11-24 16:16 | RAD REPORT ---
EXAM: CT brain without contrast HISTORY: Confused;Headache COMPARISON: None TECHNIQUE: Multiple contiguous axial images were obtained and a CT of the brain without contrast. Sag ittal and coronal reformats were performed. One or more of the following dose reduction techniques were used: Automated exposure control, adjust ment of the mA and/or kV according to patient size, and/or iterative reconstruction. FINDINGS: No evidence of hydrocephalus, intracranial hemorrhage, or extra-axial fluid collection. The brain is normal in morphology. No evidence of midline shift or areas of brain edema. The calvarium is intact. The visualized paranasal sinuses and mastoid air cells are essentially clear . IMPRESSION: No evidence of acute intracranial abnormality.
--- NOTE | 2024-11-24 16:20 | RAD REPORT ---
EXAMINATION: CT MAXILLOFACIAL WITHOUT CONTRAST CLINICAL INDICATION: FACIAL PAIN TECHNIQUE: Axial images were obtained through the facial bones and orbits without intravenous contras t. Sagittal and coronal reconstructions were created from the data. One or more of the following dose reduction techniques were used: Automated exposure control, adjustment of the mA and/or kV accor ding to patient size, and/or iterative reconstruction. Unless otherwise specified, incidental findings do not require dedicated imaging follow-up. COMPARISON: No prior exam. FINDINGS: SOFT TISSUE: No significant abnormalities. BONES: No evidence of fracture, dislocation, or aggressive osseous lesions. No lesion of the visuali zed skull base or calvarium. ORBITS: The globes are intact. No intraorbital hemorrhage or mass. SINUSES: The visualized paranasal sinuses and mastoid air cells are essentially clear. IMPRESSION: No facial bone fracture seen.
--- NOTE | 2024-11-24 16:29 | RAD REPORT ---
EXAMINATION: ONE VIEW CHEST XR CLINICAL INDICATION: CHEST PAIN TECHNIQUE: Frontal chest projection is submitted. Examination is limited by patient positioning and t echnique. COMPARISON: 11/22/2024 FINDINGS: The lungs are well inflated and clear. The heart is upper limit of normal in size. No displaced fract ures identified. IMPRESSION: No acute intrathoracic abnormalities.
--- NOTE | 2024-11-24 16:33 | RAD REPORT ---
EXAMINATION: XR RIGHT KNEE CLINICAL INDICATION: Female, 24 years old. PAIN TECHNIQUE: Multiple views of the right knee were obtained. COMPARISON: No prior exam. FINDINGS: No fracture or dislocation seen. Small suprapatellar joint effusion.
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
[2024-11-24 16:52] VITALS: BP 137/87; TEMP 98; O2SAT 100
== END 2024-11-24 16:46 | disposition home or self-care (01) ==
LOC: ER 15:08
DX: S00.33XA Contusion of nose, initial encounter (principal); S80.01XA Contusion of right knee, initial encounter
CPT/HCPCS: 70450; 70486; 71045; 76377; 99283